=== PATIENT | female | born 2000 | race Caucasian/White ===

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

== ENCOUNTER 2019-10-23 07:47 | Inpatient (IN) | payer OTHER ==
[2019-10-23 08:10] VITALS: BMI 30.9
[2019-10-23 08:57] LABS: Amnisure Test RUPTURE DETECTED (No Rupture)
[2019-10-23 08:58] LABS: Amnisure Internal Control QC ACCEPTABLE (ACCEPTABLE)
[2019-10-23] MEDS ORDERED: Ibuprofen 800 MG TAB PO PRN (09:03)
[2019-10-23] MEDS ORDERED: NS / Oxytocin 40 units/1000ml 1,000 ML IV PRN (09:03)
[2019-10-23] MEDS ORDERED: Promethazine HCl 25 MG/ML VIAL IM PRN ×2 (09:03→16:45)
[2019-10-23] MEDS ORDERED: hydrALAZINE 20 MG/ML VIAL SLOW IVP PRN (09:03)
[2019-10-23] MEDS ORDERED: Lidocaine 1% (PF) 30 ML VIAL SC PRN (09:03)
[2019-10-23] MEDS ORDERED: Ondansetron PF 4 MG/2 ML Vial IVP PRN ×2 (09:03→16:45)
--- NOTE | 2019-10-23 09:03 | PDOC.FPROB ---
FMR OB H&P: HPI - History of Present Illness Chief Complaint: juany muir Indentification: 18 yo at 38.2 wga History of Present Illness: Patient reports getting up to urinate at 0620 this AM and felt large gush of clear fluid. No contractions prior to fluid gush. Since being here at the hospital, she has had onset of mildly painful, cramping contractions. Endorses movement. Denies vaginal bleeding and vaginal discharge. Of note, she had growth scan on Friday and noted to be cephalic. Was also treated Friday w/ ceftriaxone and azithromycin for gonorrhea and chlamydia. Her partner was also treated this week. They had sexual intercourse last night. Pt works at [employer] and gets covid swabbed weekly. Had one this week which was negative. Primary Care Physician: Oz FMR OB H&P: Current - Care : 1 Para: 0 Gestational age: 38.2 Due date: 11/04/2019 Dating Criteria: 14 wk sono Course/Complications: none - OB Labs Blood type: O RH: positive Antibody Screen: negative HIV: negative RPR: negative HepBsAg: negative Rubella: immune Urine drug screen: positive (+ THC, repeat later in prenancy negative) Gonorrhea: positive Chlamydia: positive 1 hour gtt: passed GBS: negative H&H: 13.4/40.1 FMR OB H&P: History - Past Medical History PMH: none - OB History OB History: Primip - PHLEBOTOMIST PRN History PHLEBOTOMIST PRN History: Chlamydia and gonorrhea positive - Surgical History Sx History: denies - Social History Social History: Denies tobacco, alcohol. Marijuana in 1T. - Family History Family History: Denies. FMR OB H&P: Medications - Current Home Medications: Medication Instructions Recorded Confirmed Type Vitamin 1 tablet PO DAILY 10/23/19 10/23/19 History Allergies/Adverse Reactions: Allergies Allergy/AdvReac Type Severity Reaction Status Date / Time No Known Allergies Allergy Verified 10/20/12 10:51 FMR OB H&P: ROS - Review of Systems General: denies: fever/chills, fatigue Eyes: denies: vision changes ENT: denies: nasal congestion, sore throat Cardiovascular: denies: chest pain Respiratory: denies: cough, congestion Gastrointestinal: reports: cramping. denies: abdominal pain, nausea, vomiting Genitourinary (Female): denies: dysuria, vaginal discharge, vaginal bleeding, contractions Musculoskeletal: denies: pain, swelling Neurologic: denies: syncope, weakness Integumentary: denies: itching, rash Hematologic/Lymphatic: denies: prolonged or excessive bleeding Psychological: denies: depression, anxiety FMR OB H&P: Vital Signs - Maternal Vital signs: Vital Signs - First Documented Temp Pulse Resp BP 99.2 F 97 18 120/77 10/23/19 07:54 10/23/19 07:54 10/23/19 07:54 10/23/19 07:54 - Heart Tones Baseline: 155 Variability: moderate Acceleration: present Deceleration: absent Category: category 1 [place] contractions every: 5 min FMR OB H&P: Physical Exam - Physical Exam General: NAD, awake, alert and oriented HEENT: normocephalic and atraumatic, no scleral icterus, grossly normal vision, grossly normal hearing Neck: supple, trachea midline Heart: RRR, normal S1/S2, no murmurs/rubs/gallops General: CTAB, no respiratory distress Abdomen: soft, gravid Musculoskeletal: normal gait and station, pulses present Neurological: no focal deficit Skin: no rash Lymphatic: no unusual bruising or bleeding Psychiatric: intact recent and remote memory, normal mood and affect - Pelvic Exam Vulva: normal hair distribution Cervix: no masses SVE: 1-2/80/-1 per Stephanie SAMAYOA Membranes: Grossly ruptured, pooling on exam Presentation: cephalic by Darion's Estimated Weight: 8 lbs FMR OB H&P: Results - Labs Lab results: Laboratory Results - last 24 hr 10/23/19 08:27 Amnio Swab Test RUPTURE DETECTED H FMR OB H&P: A/P - Problem List (1) Premature rupture of membranes Current Visit: Yes Status: Acute Code(s): O42.90 - TRANG ROM, 7TH0 BETW RUPT & ONST LABR, UNSP WEEKS OF GEST (2) Intrauterine in teenager Current Visit: Yes Status: Acute Code(s): Z34.80 - ENCOUNTER FOR SUPRVSN OF NORMAL , UNSP TRIMESTER Disposition: admit to L&D. Augment if needed. Discussion: Date/Time: 10/23/19 0902 18 yo at 38.2 wga by 14 wk sono: Prelabor rupture of membranes - now see in latent labor - Amnisure positive, pooling positive on exam - admit to L&D, notified Dr. Clinton - now see on her own, will monitor and recheck in 4 hours. Will augment w/ pitocin if not making adequate change. 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 - 10/19/2019 Covid NEG. Will not repeat swab here for admission. This H&P was discussed with Dr. Fowler, who agree with the above documentation and plan. Signature: Cathryn Ordonez MD PGY2
[2019-10-23] MEDS ORDERED: NS w/ Oxytocin 10 units 500 ML IV SCH ×2 (09:15→13:31)
--- NOTE | 2019-10-23 09:25 | PDOC.BPN ---
- Brief Progress Note Encounter Date: 10/23/19 Encounter Time: 09:20 Patient seen at bedside by me. See full note.
--- NOTE | 2019-10-23 09:45 | HP ---
TIME OF EVALUATION: 0910 hours, it is now 0919 hours. LOCATION: Triage bed A. REASON FOR EVALUATION: Suspected rupture of membranes at 38 weeks. HISTORY OF PRESENT ILLNESS: This is a 18-year-old G1, who is at 38 weeks and 2 days by stated EDC, who complains of a "gush" of fluid at 0620 hours. She had no contractions initially, but now they are increased since her arrival. She does state that she had a recent ultrasound performed last Friday during her check and showed that the baby was in a cephalic that is head-down position. She also has a history of recently being treated for gonorrhea and chlamydia cervicitis with treatment being given last Friday (about 4 days ago). She states that her partner was also treated, but the patient did have intercourse yesterday. She has good movement and denies fever. REVIEW OF SYSTEMS: Complete review of systems was checked and is otherwise negative unless specified in the HPI. PAST MEDICAL HISTORY: Negative. PAST SURGICAL HISTORY: Negative. ALLERGIES: NONE. SOCIAL HISTORY: Negative for alcohol, tobacco, or drug use per initial screen. PHYSICAL EXAMINATION: VITAL SIGNS: Her temperature is 99.2, pulse is 97, respirations are 18, blood pressure is 120/77. GENERAL: She is in no acute distress. ABDOMEN: Soft and nontender for initial survey. There is gross evidence of rupture of membranes and it is clear. Sterile speculum examination was not performed as she is clearly ruptured. AmniSure was sent, although again she is clearly ruptured. LABORATORY DATA: Review of her labs shows that she is GBS negative. On external monitor, heart tones in the 130s to 140s with moderate variability and accelerations. There are no pathological decelerations. It is category 1. The tocodynamometer shows contractions about every 1 to 2 minutes and slightly irregular. ASSESSMENT: This is a 18-year-old G1, who is at 38 weeks and 2 days (early term) with rupture of membranes (early spontaneous labor). She is see. She does have a history of recent gonorrhea and chlamydia, which was just treated just over 72 hours ago. PLAN: 1. Admit to Labor and Delivery. 2. Routine plan of care. 3. I did discuss with her potential risk for infection of the child's eyes (ophthalmia neonatorum) due to recent treatment of gonorrhea and chlamydia. 4. We will notify Pediatrics of the recent gonorrhea and chlamydia treatment. 5. The patient is also at risk of intrauterine infection/ metritis due to the recent vaginal/cervical infection of gonorrhea and chlamydia. We will monitor. 6. No need for antibiotics now as she was already treated for gonorrhea and chlamydia and she is GBS negative. 7. Follow temperatures. 8. If she has not changed her cervix in 4 hours, we will begin Pitocin. 9. I have seen the patient at bedside. 10. The patient has also been seen by Kristine Ordonez, (Family Medicine, OB resident), and I agree with her plan of care. Job ID: [id number]
[2019-10-23 12:17] LABS: Hemoglobin 12.3 g/dL (12.0-16.0); Mean Corpuscular HGB CONC 35.4 g/dL (32.0-36.0); Mean Corpuscular Hemoglobin 33.2 pg (25.0-35.0); Mean Corpuscular Volume 93.7 fL (78.0-98.0); Mean Platelet Volume 10.3 fL (7.4-10.4); Platelet Count 176 thou/uL (130-400); Red Blood Cell (RBC) Count 3.71 mill/uL (4.00-5.20); White Blood Cell (WBC) Count 11.2 thou/uL (4.8-10.8)
[2019-10-23 12:57] LABS: Syphilis Antibody Nonreactive (Nonreactive); Syphilis Antibody Index 0.07 S/CO (<1.00 Non-Reactive)
[2019-10-23 12:58] LABS: HBSAg Index 0.15 S/CO (0-0.99); Hep B Surf Ag Non-Reactive S/CO (NonReactive)
[2019-10-23] MEDS ORDERED: Bupivacaine HCl 0.5%/Epinephrine 1:200,000/PF 30 ml Vial ONE (13:51)
[2019-10-23] MEDS ORDERED: EPHEDRINE 25 MG/5 ML SYRINGE ONE (13:51)
[2019-10-23] MEDS ORDERED: Bupivacaine/Epinephrine 0.25% 30 ML VIAL ONE (13:51)
[2019-10-23] MEDS ORDERED: Butorphanol Tartrate 1 MG/ML VIAL ONE (14:46)
[2019-10-23] MEDS ORDERED: Butorphanol Tartrate 1 MG/ML VIAL SLOW IVP PRN (14:48)
--- NOTE | 2019-10-23 14:50 | PDOC.LDPN ---
Labor & Delivery Progress Note - Subjective Subjective: comfortable - Objective Vital signs reviewed and normal: yes Dilation: 2-3 cm/80%/-1 Station: -1 FHT: category 1 - Assessment (1) Premature rupture of membranes Code(s): O42.90 - TRANG ROM, 7TH0 BETW RUPT & ONST LABR, UNSP WEEKS OF GEST Current Visit: Yes Status: Acute (2) Intrauterine in teenager Code(s): Z34.80 - ENCOUNTER FOR SUPRVSN OF NORMAL , UNSP TRIMESTER Current Visit: Yes Status: Acute Plan: pitocin for augmentation -: - pit for augmentation started at 13:30. - continue cervical checks q2-3 hours.
[2019-10-23] MEDS ORDERED: Fentanyl 4 mcg/Bup 0.1% Cadd 100 ML ONE (16:01)
--- NOTE | 2019-10-23 16:15 | PDOC.BPN ---
- Brief Progress Note Encounter Date: 10/23/19 Encounter Time: 16:15 Last exam recently 4-5cm on pitocin.
[2019-10-23 16:16] LABS: Amphetamine Not Detected (NotDetected); Barbiturates Screen Not Detected (NotDetected); Benzodiazepine Screen Not Detected (NotDetected); Cocaine Metabolite Screen Not Detected (NotDetected); Medtox Control Line Valid? VALID (VALID); Medtox Reader # READER 1; Methadone Not Detected (NotDetected); Methamphetamine Not Detected (NotDetected); Opiate Screen Not Detected (NotDetected); Oxycodone Screen Not Detected (NotDetected); Phencyclidine (PCP) Not Detected (NotDetected); THC/Cannabinoid Screen Not Detected (NotDetected); Tricyclic Screen Not Detected (NotDetected)
[2019-10-23] MEDS ORDERED: diphenhydrAMINE 50 MG/ML VIAL IVP PRN (16:45)
[2019-10-23] MEDS ORDERED: Communication Order-Pharmacy FS SCH (16:45)
[2019-10-23] MEDS ORDERED: Acetaminophen 325 MG TAB PO PRN (16:45)
[2019-10-23] MEDS ORDERED: Lactated Ringer's 500 ML IV PRN (16:45)
[2019-10-23] MEDS ORDERED: Naloxone HCl 0.4 mg/ml Vial IVP PRN ×2 (16:45)
[2019-10-23] MEDS ORDERED: EPHEDRINE 25 MG/5 ML SYRINGE SLOW IVP PRN (16:45)
[2019-10-23] MEDS: Lactated Ringer's 1,000 ML IV SCH (19:28)
--- NOTE | 2019-10-23 22:22 | PDOC.LDPN ---
Labor & Delivery Progress Note - Subjective Subjective: comfortable (epidural in place), no concerns - Objective Vital signs reviewed and normal: yes General: breathing through contractions Dilation: 6 Effacement: 90% Station: 0 FHT: category 1, variability present [place] contractions every: 1-3 min IUPC placed: yes Resuscitative measures: maternal position change - Assessment (1) Premature rupture of membranes Code(s): O42.90 - TRANG ROM, 7TH0 BETW RUPT & ONST LABR, UNSP WEEKS OF GEST Current Visit: Yes Status: Acute (2) Intrauterine in teenager Code(s): Z34.80 - ENCOUNTER FOR SUPRVSN OF NORMAL , UNSP TRIMESTER Current Visit: Yes Status: Acute Plan: continue plan of care, pitocin for augmentation -: - IUPC placed, continue pitocin titration - recheck in 2 hours.
[2019-10-24] MEDS: Fentanyl 4 mcg/Bupivacaine 0.1% Cassette 100 ML EPIDURAL SCH ×2 (00:17→06:05)
--- NOTE | 2019-10-24 02:37 | PDOC.LDPN ---
Labor & Delivery Progress Note - Subjective Subjective: comfortable (pain is bearable she says) - Objective Vital signs reviewed and normal: yes Abnormal vital signs: afebrile General: breathing through contractions SVE: soft. Dilation: 7 Effacement: 90% Station: 0 FHT: category 2, variable decelerations (intermittent), variability present [place] contractions every: 2-3 min IUPC placed: yes Resuscitative measures: maternal position change - Assessment (1) Premature rupture of membranes Code(s): O42.90 - TRANG ROM, 7TH0 BETW RUPT & ONST LABR, UNSP WEEKS OF GEST Current Visit: Yes Status: Acute (2) Intrauterine in teenager Code(s): Z34.80 - ENCOUNTER FOR SUPRVSN OF NORMAL , UNSP TRIMESTER Current Visit: Yes Status: Acute Plan: continue plan of care, pitocin for augmentation -: - pit at 8, continue titration - recheck in 2 hours. - epidural in place - continue expectant mgmt
[2019-10-24] MEDS: Lactated Ringer's 1,000 ML IV SCH ×3 (07:31→22:57)
[2019-10-24] MEDS ORDERED: Azithromycin 500 MG in Sodium Chloride 0.9% 250 ML 250 ML IVPB SCH (12:00)
[2019-10-24] MEDS ORDERED: Bicitra 30 ML UDCUP PO SCH (12:00)
[2019-10-24] MEDS ORDERED: CEFAZOLIN 2 GM in Premix Bag 1 BAG IVPB SCH (12:00)
--- NOTE | 2019-10-24 12:10 | PDOC.BPN ---
- Brief Progress Note Encounter Date: 10/24/19 Encounter Time: 12:06 Patient has pushed for almost 3 hours with very minimal descent. Increasing caput but skull still at +1 to +2. Patient exhausted and ready to proceed with LTCS. Anesthesia notified and will be available in an hour.
[2019-10-24] MEDS ORDERED: Fentanyl 100 MCG/2 ML VIAL ONE (12:33)
[2019-10-24] MEDS ORDERED: PHENYLEPHRINE-NS 100 MCG/ML 10 ML SYRINGE ONE (12:46)
[2019-10-24] MEDS ORDERED: MORPHINE 5 MG/10 ML PF VIAL ONE (12:46)
[2019-10-24] MEDS ORDERED: Ketorolac Tromethamine 30 MG/ML VIAL ONE (12:46)
[2019-10-24] MEDS ORDERED: EPHEDRINE 25 MG/5 ML SYRINGE ONE (12:46)
[2019-10-24] MEDS ORDERED: Ondansetron PF 4 MG/2 ML Vial ONE (12:46)
[2019-10-24] MEDS ORDERED: Dexamethasone 4 mg/ml Vial ONE (12:46)
[2019-10-24] MEDS ORDERED: Oxytocin 10 UNITS/ML VIAL ONE (12:46)
[2019-10-24] MEDS ORDERED: Naloxone HCl 0.4 mg/ml Vial IV PRN (13:21)
[2019-10-24] MEDS ORDERED: HYDROmorphone 2 MG/ML VIAL SLOW IVP PRN (13:21)
[2019-10-24] MEDS ORDERED: diphenhydrAMINE 50 MG/ML VIAL IVP PRN (13:21)
[2019-10-24] MEDS ORDERED: Ondansetron HCl/PF 4 MG/2 ML Vial IVP PRN (13:21)
[2019-10-24] MEDS ORDERED: L&D-Morphine 4 MG/ML VIAL SLOW IVP PRN (13:21)
[2019-10-24] MEDS ORDERED: Meperidine HCl/PF 25 MG/ML VIAL SLOW IVP PRN (13:21)
[2019-10-24] MEDS ORDERED: Ketorolac Tromethamine 30 MG/ML VIAL IVP PRN (13:21)
[2019-10-24] MEDS ORDERED: Naloxone HCl 0.4 mg/ml Vial IVP PRN ×2 (13:21)
[2019-10-24] MEDS ORDERED: Ondansetron PF 4 MG/2 ML Vial IVP PRN ×2 (13:21→13:54)
[2019-10-24] MEDS ORDERED: Promethazine HCl 25 MG/ML VIAL IM PRN (13:21)
[2019-10-24] MEDS ORDERED: Promethazine HCl 25 MG SUPP PR PRN (13:21)
[2019-10-24] MEDS ORDERED: Communication Order-Pharmacy FS SCH (13:30)
[2019-10-24] MEDS ORDERED: Ketorolac Tromethamine 30 MG/ML VIAL IVP SCH (13:30)
[2019-10-24] MEDS ORDERED: Acetaminophen 325 MG TAB PO PRN (13:54)
[2019-10-24] MEDS ORDERED: Lanolin Ointment 7 GM TUBE TOP PRN (13:54)
[2019-10-24] MEDS ORDERED: Simethicone Chewable 80 MG TAB PO PRN (13:54)
[2019-10-24] MEDS ORDERED: diphenhydrAMINE 25 MG CAP PO PRN (13:54)
[2019-10-24] MEDS ORDERED: hydrALAZINE 20 MG/ML VIAL SLOW IVP PRN (13:54)
[2019-10-24] MEDS ORDERED: Measles/Mumps/Rubella 10 MCG/0.5 ML VIAL SC ONE (13:54)
[2019-10-24] MEDS ORDERED: Adacel (T-DAP) 0.5 ML SYRINGE IM ONE (13:54)
[2019-10-24] MEDS ORDERED: Methylergonovine 0.2 MG/ML VIAL IM PRN (13:54)
[2019-10-24] MEDS ORDERED: HYDROcodone/Acetaminophen 5/325 mg Tablet PO PRN (13:54)
[2019-10-24] MEDS ORDERED: NS / Oxytocin 40 units/1000ml 1,000 ML IV SCH (14:00)
--- NOTE | 2019-10-24 14:11 | PDOC.OPDEL ---
OB Operative/Delivery Note Delivery Dr/Surgeon: Radha Assist: Kia Pre-Delivery Diagnosis: other (arrest of descent) Procedure/Post Delivery Dx: primary low transverse CS Anesthesia: epidural - Findings A Sex: male ("Jean Marie") Weight: 7 lb 14 oz - 1 min: 9 - 5 min: 9 - Additional Findings/Plan Placenta delivered: spontaneous findings: low transverse hysterotomy without extension Estimated blood loss: 770ml Post delivery plan: routine recovery
[2019-10-24] MEDS: Ibuprofen 800 MG TAB PO SCH ×2 (17:04→21:50)
[2019-10-24] MEDS: Docusate Calcium (SURFAK) 240 MG CAP PO SCH (21:50)
[2019-10-25] MEDS: Ferrous Sulfate 325 MG TAB PO SCH ×3 (02:29→22:06)
[2019-10-25 05:30] LABS: Hemoglobin 9.9 g/dL (12.0-16.0); Mean Corpuscular Hemoglobin 32.4 pg (25.0-35.0); Mean Corpuscular Volume 95.1 fL (78.0-98.0); Mean Platelet Volume 9.5 fL (7.4-10.4); Platelet Count 156 thou/uL (130-400); RBC Distribution Width 11.1 % (11.5-14.5); Red Blood Cell (RBC) Count 3.07 mill/uL (4.00-5.20); White Blood Cell (WBC) Count 19.5 thou/uL (4.8-10.8)
[2019-10-25] MEDS: Ibuprofen 800 MG TAB PO SCH ×3 (06:10→22:06)
--- NOTE | 2019-10-25 07:30 | PDOC.PP ---
Post Progress Note Post Day #: 1 Subjective: Patient doing well this morning. Has already been up to shower. Castro discontinued. PO intake tolerated: yes Flatus: yes Ambulation: yes Vital Signs (12 hours) Temp Pulse Resp BP Pulse Ox 10/25/19 04:20 98.3 F 69 16 99/50 L 10/25/19 04:00 98.3 F 69 16 99/50 L 10/24/19 23:45 98.3 F 77 16 112/57 L 10/24/19 20:20 99.3 F 80 17 112/59 L 97 Weight Weight 180 lb - Physical Examination General: NAD Respiratory: non-labored breathing Abdominal: lochia (normal), no distention, appropriately TTP Fundus firm & at: below umbilicus Skin: CS incision dry & intact, no rash Neurological: no gross focal deficits Psychiatric: A&Ox3, normal affect Result Diagrams: 10/25/19 05:10 Additional Labs: Post Labs Blood Type O POSITIVE 10/23/19 12:54 Hep Bs Antigen Non-Reactive S/CO (NonReactive) 10/23/19 11:52 (1) Arrest of descent, delivered, current hospitalization Code(s): O62.1 - SECONDARY UTERINE INERTIA Status: Acute (2) delivery delivered Code(s): O82 - ENCOUNTER FOR DELIVERY WITHOUT INDICATION Status: Acute - Assessment/Plan Continue routine postop management. Anticipate d/c tomorrow or Friday.
[2019-10-25] MEDS: Prenatal Vitamin 1 TAB PO SCH (10:11)
[2019-10-25] MEDS: Docusate Calcium (SURFAK) 240 MG CAP PO SCH ×2 (10:11→22:06)
--- NOTE | 2019-10-25 12:56 | PDOC.PP ---
Post Progress Note Post Day #: 1 Subjective: doing well, tolerating regular diet, ambulating and voiding well PO intake tolerated: yes Flatus: yes Ambulation: yes Vital Signs (12 hours) Temp Pulse Resp BP Pulse Ox 10/25/19 11:35 98.5 F 83 20 109/52 L 98 10/25/19 08:23 98.1 F 67 20 104/57 L 96 10/25/19 04:20 98.3 F 69 16 99/50 L 10/25/19 04:00 98.3 F 69 16 99/50 L Weight Weight 180 lb - Physical Examination General: NAD Respiratory: non-labored breathing Abdominal: no distention Skin: CS incision dry & intact Psychiatric: A&Ox3, normal affect Result Diagrams: 10/25/19 05:10 Additional Labs: Post Labs Blood Type O POSITIVE 10/23/19 12:54 Hep Bs Antigen Non-Reactive S/CO (NonReactive) 10/23/19 11:52 (1) Arrest of descent, delivered, current hospitalization Code(s): O62.1 - SECONDARY UTERINE INERTIA Status: Acute (2) delivery delivered Code(s): O82 - ENCOUNTER FOR DELIVERY WITHOUT INDICATION Status: Acute - Assessment/Plan POD1 doing well, pain controlled, baby latching well. Continue PP care.
--- NOTE | 2019-10-25 15:57 | OP ---
DATE OF PROCEDURE: 10/24/2019 PREOPERATIVE DIAGNOSES: 1. Premature rupture of membranes. 2. Arrest of descent. 3. Recent gonorrhea and Chlamydia infection. 4. 38-week intrauterine . POSTOPERATIVE DIAGNOSES: 1. Premature rupture of membranes. 2. Arrest of descent. 3. Recent gonorrhea and Chlamydia infection. 4. 38-week intrauterine . PROCEDURE PERFORMED: Primary low-transverse section. DUMPLING MACHINE OPERATOR: Carmina Adam MD. ANESTHESIA: Epidural. COMPLICATIONS: None. QUANTITATIVE BLOOD LOSS: 770 mL. FINDINGS: Normal-appearing uterus, tubes, and ovaries. Vigorous male infant, cephalic presentation, Apgars 9 and 9. weight 3575 g. DESCRIPTION OF PROCEDURE: The patient was taken to the operating room, where her epidural anesthesia was found to be adequate. She was prepared and draped in normal sterile fashion in the dorsal supine position with leftward tilt. A Pfannenstiel skin incision was made with a scalpel and carried down to the underlying layer of fascia. The fascia was incised in the midline and extended laterally with Dodge scissors. The fascia was then dissected off the rectus muscle sharply. The rectus muscles were in the midline and the peritoneum was entered and extended superiorly and inferiorly with good visualization of the bladder. The Shawn O retractor was placed in the abdomen and the lower uterine segment was then incised in a transverse fashion with scalpel. The incision was extended with cephalocaudal traction. The infant's head was delivered atraumatically. The nose and mouth were bulb suctioned and the cord was clamped and cut. The infant was handed off to the awaiting NICU Team. The placenta was delivered and the uterus was cleared of all clots and debris. The uterine incision was repaired and it was closed with 0 Monocryl in a running locked fashion in 2 layers with good hemostasis noted. The fascia was repaired in a running fashion with 0 PDS. The subcutaneous tissue was reapproximated with plain gut and the skin was closed in a subcuticular fashion with 4-0 Monocryl. The patient tolerated the procedure well. Sponge, lap, and needle counts were correct x2. The patient was taken to the recovery room in stable condition. Job ID: [id number]
[2019-10-25] MEDS: HYDROcodone/Acetaminophen 5/325 mg Tablet PO PRN ×2 (16:22→22:10)
[2019-10-25] MEDS: Lactated Ringer's 1,000 ML IV SCH ×4 (19:10→22:02)
[2019-10-26] MEDS: Ibuprofen 800 MG TAB PO SCH ×3 (06:23→21:23)
[2019-10-26] MEDS: Lactated Ringer's 1,000 ML IV SCH ×3 (06:25→19:24)
[2019-10-26] MEDS: HYDROcodone/Acetaminophen 5/325 mg Tablet PO PRN ×3 (06:25→19:25)
[2019-10-26] MEDS: Ferrous Sulfate 325 MG TAB PO SCH ×2 (08:59→21:23)
[2019-10-26] MEDS: Docusate Calcium (SURFAK) 240 MG CAP PO SCH ×2 (08:59→21:23)
[2019-10-26] MEDS: Prenatal Vitamin 1 TAB PO SCH (08:59)
--- NOTE | 2019-10-26 11:00 | PDOC.PP ---
Post Progress Note Post Day #: 2 Subjective: doing well, desires DC home but baby under photothearpy PO intake tolerated: yes Flatus: yes Ambulation: yes Vital Signs (12 hours) Temp Pulse Resp BP Pulse Ox 10/26/19 08:06 98.4 F 98 20 129/79 98 10/26/19 06:18 98.2 F 94 18 138/77 10/26/19 00:40 98.7 F 61 16 115/55 L Weight Weight 180 lb - Physical Examination General: NAD Respiratory: non-labored breathing Skin: CS incision dry & intact Psychiatric: A&Ox3, normal affect Result Diagrams: 10/25/19 05:10 Additional Labs: Post Labs Blood Type O POSITIVE 10/23/19 12:54 Hep Bs Antigen Non-Reactive S/CO (NonReactive) 10/23/19 11:52 (1) Arrest of descent, delivered, current hospitalization Code(s): O62.1 - SECONDARY UTERINE INERTIA Status: Acute (2) delivery delivered Code(s): O82 - ENCOUNTER FOR DELIVERY WITHOUT INDICATION Status: Acute - Assessment/Plan POD2 doing well sp 1CS for failed 2nd stage. Possible DC if baby DC later today.
[2019-10-26 21:32] LABS: Chlam.trachomatis by PCR,Urine Not Detected (NotDetected)
[2019-10-27] MEDS: Ibuprofen 800 MG TAB PO SCH (10:26)
[2019-10-27] MEDS: Docusate Calcium (SURFAK) 240 MG CAP PO SCH (10:26)
[2019-10-27] MEDS: Prenatal Vitamin 1 TAB PO SCH (10:27)
[2019-10-27] MEDS: Ferrous Sulfate 325 MG TAB PO SCH (10:27)
[2019-10-27 10:28] VITALS: BP 130/74; TEMP 98.3
[2019-10-27] MEDS: HYDROcodone/Acetaminophen 5/325 mg Tablet PO PRN (11:59)
--- NOTE | 2019-10-27 12:40 | PDOC.PP ---
Post Progress Note Post Day #: 3 Subjective: doing well, no concerns, ready for DC home PO intake tolerated: yes Flatus: yes Ambulation: yes Vital Signs (12 hours) Temp Pulse Resp BP Pulse Ox 10/27/19 07:30 98.3 F 74 20 130/74 99 Weight Weight 180 lb - Physical Examination General: NAD Respiratory: non-labored breathing Abdominal: no distention Skin: CS incision dry & intact Result Diagrams: 10/25/19 05:10 Additional Labs: Post Labs Hep Bs Antigen Non-Reactive S/CO (NonReactive) 10/23/19 11:52 Blood Type O POSITIVE 10/23/19 12:54 (1) Arrest of descent, delivered, current hospitalization Code(s): O62.1 - SECONDARY UTERINE INERTIA Status: Acute (2) delivery delivered Code(s): O82 - ENCOUNTER FOR DELIVERY WITHOUT INDICATION Status: Acute - Assessment/Plan POD3 doing well, home today, post op pain med use reviewed.
--- NOTE | 2019-11-02 13:14 | PQF ---
CLINICAL DOCUMENTATION CLARIFICATION FORM: Dear : Avtar Clinton DO Date / Time: 11/02/2019 Please exercise your independent, professional judgment in responding to the clarification form. Clinical indicators are provided on the bottom of this form for your review Please check appropriate box(es): [ ] Gonorrhea and chlamydia are currently being treated [ x ] Gonorrhea and chlamydia are history infection [ ] Other diagnosis (Please specify if any) [ ] Unable to determine Physician Signature: Date/Time: For continuity of documentation, please document condition throughout progress notes and discharge summary. Thank You. To be completed by CDI/Coding staff for physician review: Present Clinical Indicators - Signs / Symptoms / Labs Results and Location in Medical Record [x ] She does have a history of recent gonorrhea and chlamydia, which was just treated just over 72hours ago H&P on 10/22 [ x ] Was also treated [place] with ceftriaxone and azithromycin for gonorrhea and chlamydia. Her partner was also treated this week OB H&P on 10/22 [ x ] No need for antibiotics now as he was already treated for gonorrhea and chlamydia. H&P on 10/22 [x ] gonorrhea and chlamydia cervicitis with treatment being given last Friday(about 4 days ago) H&P on 10/22 [x ] Gonorrhea- not detected on 10/23 Laboratory on 10/23 Present Risk Factors Results and Location in Medical Record [ x ] at 38.2 WGA OB H&P on 10/22 [ ] [ ] [ ] Present Treatments Results and Location in Medical Record [ x] treatment being given last Friday(about 4 days ago) H&P on 10/22 [ x] No need for antibiotics now as he was already treated for gonorrhea and chlamydia H&P on 10/22 [ ] [ ] CDS/Supply Coordinator Signature: AAS Phone #: Date/Time: 11/02/2019 This is a permanent part of the Medical Record [facility]
== END 2019-10-27 12:22 | disposition home or self-care (01) | DRG 788 ==
LOC: L&D/OP 07:47 → L&D 11:59 → 3SE 10-24 15:59
PROVIDERS: ADMIT Obstetrics & Gynecology; ATTEND Obstetrics & Gynecology
PROC: 10H07YZ Insertion of Other Device into Products of Conception, Via Natural or Artificial Opening (ICD-10-PCS; 2019-10-23)
PROC: 10D00Z1 Extraction of Products of Conception, Low, Open Approach (ICD-10-PCS; principal; 2019-10-24)
DX: O42.02 Full-term premature rupture of membranes, onset of labor within 24 hours of rupture (principal); O62.1 Secondary uterine inertia; O42.90 Premature rupture of membranes, unspecified as to length of time between rupture and onset of labor, unspecified weeks of gestation; Z20.828 Contact with and (suspected) exposure to other viral communicable diseases; Z37.0 Single live birth; Z3A.38 38 weeks gestation of pregnancy; Z86.19 Personal history of other infectious and parasitic diseases
CPT/HCPCS: 36415; 51702; 80306; 84112; 85027; 86780; 86850; 86900; 86901; 87340; 87491; 87591; 99285; J0456; J0595; J0670; J0690; J1100; J1885; J2274; J2405; J2590; J3010; J7050